=== PATIENT | female | born 1980 | race Caucasian/White ===

== ENCOUNTER 2020-06-01 01:20 | Emergency (ER) | payer SELFPAY ==
[2020-06-01] MEDS ORDERED: Mag-Al Plus 1200 MG/1200 MG/120 MG/30 ML UDCUP ONE (01:57)
[2020-06-01] MEDS ORDERED: Aspirin Chewable 81 MG TAB ONE (01:57)
[2020-06-01 02:26] LABS: #Basophils 0.1 10x3/uL (0.0-0.2); #Eosinphils 0.8 10x3/uL (0.0-0.5); #Neutrophils 7.3 10x3/uL (1.5-8.4); %Basophils 0.8 % (0.0-2.0); %Eosinophils 6.6 % (0.0-6.0); %Lymphocytes 22.4 % (18.0-47.0); %Monocytes 8.2 % (0.0-10.0); %Neutrophils 61.7 % (40.0-75.0); Hemoglobin 11.7 g/dL (12.0-15.5); Mean Corpuscular HGB CONC 32.9 g/dL (32.0-36.0); Mean Corpuscular Hemoglobin 26.3 pg (27.0-33.0); Mean Platelet Volume 9.7 fl (7.4-10.4); Platelet Count 258 10x3/uL (150-450); RBC Distribution Width 14.2 % (11.5-14.5); Red Blood Cell (RBC) Count 4.45 10x6/uL (3.90-5.03); White Blood Cell (WBC) Count 11.8 10x3/uL (3.5-10.5)
[2020-06-01 02:39] LABS: ALT (SGPT) 10 U/L (8-55); AST (SGOT) 16 U/L (5-34); Albumin 4.3 g/dL (3.5-5.0); Alkaline Phosphatase 65 U/L (40-110); Anion Gap 13 mmol/L (10-20); BUN (Urea Nitrogen) 7 mg/dL (7.0-18.7); Bilirubin, Total 0.1 mg/dL (0.2-1.2); Calc. Creatinine Clearance 0 mL/min (70-130); Calcium 9.2 mg/dL (7.8-10.44); Carbon Dioxide 24 mmol/L (22-29); Chloride 105 mmol/L (98-107); Globulin 2.4 g/dL (2.4-3.5); Glucose 92 mg/dL (70-105); Lipase 25 U/L (8-78); Potassium 3.8 mmol/L (3.5-5.1); Protein, Total 6.7 g/dL (6.0-8.3); Sodium 138 mmol/L (136-145)
[2020-06-01] MEDS ORDERED: Ketorolac Tromethamine 30 MG/ML VIAL ONE (03:26)
== END 2020-06-01 06:22 | disposition home or self-care (01) ==
LOC: CSHERS 01:20
DX: R07.89 Other chest pain (principal); K21.9 Gastro-esophageal reflux disease without esophagitis; F17.210 Nicotine dependence, cigarettes, uncomplicated
CPT/HCPCS: 71045; 80053; 83690; 84443; 84484; 85025; 93005; 96374; J1885

== ENCOUNTER 2020-06-29 12:54 | Emergency (ER) | payer SELFPAY ==
[2020-06-29] MEDS ORDERED: Ketorolac Tromethamine 30 MG/ML VIAL ONE (13:57)
[2020-06-29 14:05] LABS: #Basophils 0.1 10x3/uL (0.0-0.2); #Eosinphils 0.7 10x3/uL (0.0-0.5); #Monocytes 0.5 10x3/uL (0.0-1.1); #Neutrophils 3.7 10x3/uL (1.5-8.4); %Basophils 1.2 % (0.0-2.0); %Eosinophils 11.4 % (0.0-6.0); %Neutrophils 58.2 % (40.0-75.0); Hemoglobin 11.7 g/dL (12.0-15.5); Mean Corpuscular HGB CONC 31.7 g/dL (32.0-36.0); Mean Corpuscular Hemoglobin 25.5 pg (27.0-33.0); Mean Corpuscular Volume 80.6 fl (81.6-98.3); Mean Platelet Volume 9.4 fl (7.4-10.4); Platelet Count 242 10x3/uL (150-450); RBC Distribution Width 14.1 % (11.5-14.5); Red Blood Cell (RBC) Count 4.58 10x6/uL (3.90-5.03); White Blood Cell (WBC) Count 6.4 10x3/uL (3.5-10.5)
[2020-06-29 14:14] LABS: ALT (SGPT) 9 U/L (8-55); AST (SGOT) 16 U/L (5-34); Albumin 3.9 g/dL (3.5-5.0); Alkaline Phosphatase 63 U/L (40-110); Anion Gap 13 mmol/L (10-20); BUN (Urea Nitrogen) 9 mg/dL (7.0-18.7); Bilirubin, Total 0.2 mg/dL (0.2-1.2); Calc. Creatinine Clearance 0 mL/min (70-130); Calcium 9.1 mg/dL (7.8-10.44); Carbon Dioxide 24 mmol/L (22-29); Chloride 107 mmol/L (98-107); Globulin 2.5 g/dL (2.4-3.5); Glucose 63 mg/dL (70-105); Potassium 4.4 mmol/L (3.5-5.1); Protein, Total 6.4 g/dL (6.0-8.3); Sodium 140 mmol/L (136-145)
== END 2020-06-29 14:55 | disposition home or self-care (01) ==
LOC: CSHERS 12:54
DX: M94.0 Chondrocostal junction syndrome [Tietze] (principal); K21.9 Gastro-esophageal reflux disease without esophagitis; F17.210 Nicotine dependence, cigarettes, uncomplicated
CPT/HCPCS: 71045; 80053; 84484; 85025; 93005; 96374; J1885

== ENCOUNTER 2021-02-04 14:44 | Emergency (ER) | payer SELFPAY ==
[2021-02-04 15:47] LABS: #Basophils 0.1 10x3/uL (0.0-0.2); #Eosinphils 0.7 10x3/uL (0.0-0.5); #Monocytes 0.4 10x3/uL (0.0-1.1); #Neutrophils 4.5 10x3/uL (1.5-8.4); %Basophils 1.7 % (0.0-2.0); %Eosinophils 9.4 % (0.0-6.0); %Lymphocytes 24.7 % (18.0-47.0); %Monocytes 5.7 % (0.0-10.0); %Neutrophils 58.4 % (40.0-75.0); Hemoglobin 11.2 g/dL (12.0-15.5); Mean Corpuscular HGB CONC 32.1 g/dL (32.0-36.0); Mean Corpuscular Hemoglobin 24.7 pg (27.0-33.0); Mean Platelet Volume 8.8 fl (7.4-10.4); Platelet Count 275 10x3/uL (150-450); RBC Distribution Width 15.1 % (11.5-14.5); Red Blood Cell (RBC) Count 4.53 10x6/uL (3.90-5.03); White Blood Cell (WBC) Count 7.7 10x3/uL (3.5-10.5)
[2021-02-04 15:58] LABS: ALT (SGPT) 8 U/L (8-55); AST (SGOT) 15 U/L (5-34); Albumin 4.1 g/dL (3.5-5.0); Alkaline Phosphatase 57 U/L (40-110); Anion Gap 10 mmol/L (10-20); BUN (Urea Nitrogen) 9 mg/dL (7.0-18.7); Bilirubin, Total 0.1 mg/dL (0.2-1.2); Calc. Creatinine Clearance 0 mL/min (70-130); Calcium 8.9 mg/dL (7.8-10.44); Carbon Dioxide 26 mmol/L (22-29); Chloride 107 mmol/L (98-107); Globulin 2.5 g/dL (2.4-3.5); Glucose 100 mg/dL (70-105); Potassium 4.1 mmol/L (3.5-5.1); Protein, Total 6.6 g/dL (6.0-8.3); Sodium 139 mmol/L (136-145)
== END 2021-02-04 16:46 | disposition home or self-care (01) ==
LOC: CSHERS 14:44
DX: R07.2 Precordial pain (principal); I49.8 Other specified cardiac arrhythmias; K21.9 Gastro-esophageal reflux disease without esophagitis; F17.210 Nicotine dependence, cigarettes, uncomplicated; Z98.61 Coronary angioplasty status; Z79.899 Other long term (current) drug therapy
CPT/HCPCS: 36415; 71045; 80053; 83735; 83880; 84484; 85025; 93005

== ENCOUNTER 2021-09-26 00:04 | Emergency (ER) | payer SELFPAY ==
[2021-09-26] MEDS ORDERED: Ketorolac Tromethamine 30 MG/ML VIAL ONE (00:31)
== END 2021-09-26 00:55 | disposition home or self-care (01) ==
LOC: CSHERS 00:04
DX: M54.50 Low back pain, unspecified (principal); F17.210 Nicotine dependence, cigarettes, uncomplicated; W19.XXXA Unspecified fall, initial encounter
CPT/HCPCS: 72131; J1885

== ENCOUNTER 2021-12-16 13:36 | Inpatient (IN) | payer SELFPAY ==
[2021-12-16] MEDS ORDERED: Naloxone HCl 0.4 mg/ml Vial ONE (13:45)
[2021-12-16] MEDS ORDERED: Ondansetron PF 4 MG/2 ML Vial ONE (14:11)
[2021-12-16 14:18] LABS: Bilirubin Neg (Negative); Blood, Urine 250 (Negative); Glucose, Urine (Dipstick) 50 mg/dL (Negative); Ketone, Urine Negative (Negative); Leukocyte 25 (Negative); Nitrite Positive (Negative); Protein, Urine (Dipstick) 100 mg/dl (Neg-Trace); Urobilinogen Normal mg/dL (Less than 2)
[2021-12-16 14:26] LABS: Amphetamine Detected (NotDetected); Barbiturates Screen Not Detected (NotDetected); Benzodiazepine Screen Detected (NotDetected); Cocaine Metabolite Screen Not Detected (NotDetected); Methadone Not Detected (NotDetected); Methamphetamine Detected (NotDetected); Opiate Screen Not Detected (NotDetected); Oxycodone Screen Not Detected (NotDetected); Phencyclidine (PCP) Not Detected (NotDetected); THC/Cannabinoid Screen Not Detected (NotDetected); Tricyclic Screen Not Detected (NotDetected)
[2021-12-16 14:29] LABS: Hemoglobin 13.4 g/dL (12.0-15.5); Mean Corpuscular HGB CONC 31.5 g/dL (32.0-36.0); Mean Corpuscular Hemoglobin 25.4 pg (27.0-33.0); Mean Corpuscular Volume 80.7 fl (81.6-98.3); Mean Platelet Volume 9.7 fl (7.4-10.4); Platelet Count 302 10x3/uL (150-450); RBC Distribution Width 15.4 % (11.5-14.5); Red Blood Cell (RBC) Count 5.28 10x6/uL (3.90-5.03); White Blood Cell (WBC) Count 51.2 10x3/uL (3.5-10.5)
[2021-12-16 14:52] LABS: Bacteria/HPF 4+ HPF (None Seen); Mucous/LPF 1+ LPF (<2+); RBC/HPF 0-3 HPF (0-3); Squamous Epithelial 0-3 HPF (0-3); Transitional Epithelial 0-3 HPF (None Seen)
[2021-12-16 15:15] LABS: Band 15 % (5-11); Lymphocytes 4 % (21-51); Monocytes 9 % (0-10); Reactive Lymphocytes 1 % (0-10)
[2021-12-16 15:18] LABS: Neutrophil 71 % (42-75); Platelet Morphology Comment Appears Adequate
[2021-12-16] MEDS ORDERED: Cefepime 2 GM VIAL ONE (15:19)
[2021-12-16 15:20] LABS: Large Platelets SLIGHT
[2021-12-16 15:20] LABS: ALT (SGPT) 147 U/L (8-55); AST (SGOT) 299 U/L (5-34); Albumin 4.6 g/dL (3.5-5.0); Alkaline Phosphatase 124 U/L (40-110); Anion Gap 24 mmol/L (10-20); BUN (Urea Nitrogen) 14 mg/dL (7.0-18.7); Bilirubin, Total 0.1 mg/dL (0.2-1.2); Calc. Creatinine Clearance 0 mL/min (70-130); Calcium 9.1 mg/dL (7.8-10.44); Carbon Dioxide 12 mmol/L (22-29); Chloride 110 mmol/L (98-107); Estimated GFR 38; Glucose 75 mg/dL (70-105); Potassium 3.7 mmol/L (3.5-5.1); Protein, Total 7.6 g/dL (6.0-8.3); Sodium 142 mmol/L (136-145)
[2021-12-16 15:21] LABS: Reflex for Review?? YES
[2021-12-16 15:23] LABS: MDiff Complete? YES
[2021-12-16 15:30] LABS: BHCG - Serum Negative (NEGATIVE); Pregs Control Background? CLEAR/WHITE (CLR/WHITE); Pregs Control Bar Appear? YES (CONTROL BAR)
[2021-12-16] MEDS ORDERED: Clindamycin/D5W 600 MG in Premix Bag 1 BAG IVPB SCH (15:45)
[2021-12-16 16:06] LABS: Acetaminophen Less than 10.0 mcg/mL (10.0-30.0); Alcohol Less than 10 mg/dL (Less than 10); Salicylate Less than 8.0 mg/dL (15.0-30.0)
[2021-12-16] MEDS ORDERED: NOREPINEPHRINE 8 MG/250 ML-D5W 250 ML ONE (16:13)
[2021-12-16 17:31] LABS: SARS-CoV-2 NAA Rapid Test Not Detected (NotDetected)
[2021-12-16] MEDS ORDERED: HumaLOG 300 UNITS/3 ML VIAL SC PRN (17:48)
[2021-12-16] MEDS ORDERED: Acetaminophen 650 MG Suppository PR PRN (17:48)
[2021-12-16] MEDS ORDERED: NOREPINEPHRINE 8 MG/250 ML-D5W 250 ML IVPB PRN (17:48)
[2021-12-16] MEDS ORDERED: Ventilator Sedation Protocol 1 EACH FS SCH (18:00)
[2021-12-16] MEDS ORDERED: Fentanyl BOLUS 250 ML IVPB PRN (18:45)
[2021-12-16] MEDS ORDERED: Morphine 2 MG/ML VIAL SLOW IVP PRN (18:45)
[2021-12-16] MEDS ORDERED: fentaNYL Citrate-0.9 % NaCl/PF 100 ML IVPB SCH (18:45)
[2021-12-16] MEDS ORDERED: Propofol 1,000 MG/100 ML VIAL IV PRN (18:45)
[2021-12-16] MEDS ORDERED: Propofol BOLUS 1,000 MG/100 ML VIAL IV PRN (18:45)
[2021-12-16 19:00] LABS: Actual Bicarbonate (HCO3a) 16.7 mEq/L (22-28); Base Excess (BEa) -8.1 mEq/L (-2.0 to +3.0); CO2 Tension 32.2 mmHg (35.0-45.0); Calcium, Ionized (arterial) 1.07 mmol/L (1.12-1.30); Carboxyhemoglobin (COHb) 0.2 gm% (0.0-3.0); O2 Tension (PaO2), arterial 233.2 mmHg (80.0-100.0); Potassium - ABG Lab 4.3 mmol/L (3.70-5.30); Puncture Site RRA; pH, Arterial 7.33 (7.35-7.45)
[2021-12-16] MEDS ORDERED: Dextrose 50% Abboject 50 ML SYRINGE ONE (19:25)
[2021-12-16 19:50] LABS: Lactic Acid 1.5 mmol/L (0.5-2.2)
[2021-12-16 19:52] LABS: INR-International Normal Ratio 1.2; PTT 27.9 sec (22.0-33.0); Prothrombin Time 12.4 sec (9.5-12.1)
[2021-12-16 20:00] LABS: Troponin I 0.228 ng/mL (< 0.028)
[2021-12-16] MEDS ORDERED: metroNIDAZOLE 500 MG TAB PO SCH (21:00)
[2021-12-16] MEDS ORDERED: Famotidine/PF 20 mg/2ml Vial SLOW IVP SCH (21:00)
[2021-12-16] MEDS: Sodium Chloride 0.9% 1,000 ML IV SCH (21:11)
[2021-12-16] MEDS: Lorazepam 2 MG/ML VIAL SLOW IVP PRN (21:29)
[2021-12-16] MEDS: Famotidine/PF 20 mg/2ml Vial SLOW IVP SCH (21:40)
[2021-12-16] MEDS: Heparin 5,000 UNITS/ML VIAL SC SCH (21:40)
[2021-12-16] MEDS: metroNIDAZOLE 500 MG in Premix Bag 1 BAG IVPB SCH (22:31)
[2021-12-17] MEDS ORDERED: FLU VACC QS2022-23(6MOS UP)/PF 60 MCG/0.5 ML SYRINGE IM ONE (01:45)
[2021-12-17] MEDS ORDERED: Dextrose 5% in Water 1,000 ML IV PRN (01:45)
[2021-12-17] MEDS ORDERED: Dextrose 50% Abboject 50 ML SYRINGE IVP PRN (01:45)
[2021-12-17 04:31] LABS: ALV-art Gradient 33.425 mmHg (0-20); Actual Bicarbonate (HCO3a) 16.3 mEq/L (22-28); Base Excess (BEa) -7.7 mEq/L (-2.0 to +3.0); CO2 Tension 28.7 mmHg (35.0-45.0); Carboxyhemoglobin (COHb) 0.3 gm% (0.0-3.0); Critical Notified By: CP.PH; Hemoglobin (Hb) 11.6 g/dL (12.0-16.0); O2 Tension (PaO2), arterial 144.6 mmHg (80.0-100.0); Potassium - ABG Lab 3.7 mmol/L (3.70-5.30); Puncture Site RRA; RapidComm Collect By CP.PH; pH, Arterial 7.37 (7.35-7.45)
[2021-12-17] MEDS: Cefepime 2 GM in Sodium Chloride 0.9% 100 ML IVPB SCH ×2 (04:31→15:51)
[2021-12-17 05:06] LABS: #Eosinphils 0.2 10x3/uL (0.0-0.5); #Neutrophils 16.3 10x3/uL (1.5-8.4); %Basophils 0.2 % (0.0-2.0); %Eosinophils 1.2 % (0.0-6.0); %Lymphocytes 7.7 % (18.0-47.0); %Monocytes 5.4 % (0.0-10.0); %Neutrophils 84.8 % (40.0-75.0); Hemoglobin 11.1 g/dL (12.0-15.5); Mean Corpuscular HGB CONC 33.3 g/dL (32.0-36.0); Mean Corpuscular Hemoglobin 25.1 pg (27.0-33.0); Mean Corpuscular Volume 75.3 fl (81.6-98.3); Mean Platelet Volume 9.4 fl (7.4-10.4); Platelet Count 202 10x3/uL (150-450); RBC Distribution Width 15.5 % (11.5-14.5); Red Blood Cell (RBC) Count 4.42 10x6/uL (3.90-5.03); White Blood Cell (WBC) Count 19.2 10x3/uL (3.5-10.5)
[2021-12-17 05:09] LABS: Thyroid Stimulating Hormone 1.9284 uIU/mL (0.35-4.94)
[2021-12-17 05:11] LABS: CK (CPK) 24803 U/L (29-168)
[2021-12-17 05:21] LABS: ALT (SGPT) 168 U/L (8-55); AST (SGOT) 389 U/L (5-34); Albumin 2.6 g/dL (3.5-5.0); Alkaline Phosphatase 79 U/L (40-110); Anion Gap 12 mmol/L (10-20); BUN (Urea Nitrogen) 17 mg/dL (7.0-18.7); Bilirubin, Total 0.2 mg/dL (0.2-1.2); Calc. Creatinine Clearance 54 mL/min (70-130); Calcium 7.3 mg/dL (7.8-10.44); Carbon Dioxide 16 mmol/L (22-29); Chloride 117 mmol/L (98-107); Estimated GFR 63; Globulin 1.8 g/dL (2.4-3.5); Glucose 108 mg/dL (70-105); Potassium 3.8 mmol/L (3.5-5.1); Protein, Total 4.4 g/dL (6.0-8.3); Sodium 141 mmol/L (136-145)
[2021-12-17] MEDS: metroNIDAZOLE 500 MG in Premix Bag 1 BAG IVPB SCH ×3 (05:53→22:05)
[2021-12-17] MEDS: Sodium Chloride 0.9% 1,000 ML IV SCH ×2 (06:46)
[2021-12-17] MEDS ORDERED: Sodium Chloride 0.9% 1,000 ML IV SCH (07:27)
[2021-12-17] MEDS ORDERED: Lactated Ringer's 500 ML IV SCH (07:30)
[2021-12-17] MEDS: Dextrose 5 %-0.45 % NaCl 1,000 ML IV SCH ×3 (08:23→21:35)
[2021-12-17] MEDS: Heparin 5,000 UNITS/ML VIAL SC SCH ×3 (08:39→20:11)
[2021-12-17] MEDS: Famotidine/PF 20 mg/2ml Vial SLOW IVP SCH ×2 (08:39→20:11)
[2021-12-17 08:54] LABS: Magnesium 1.4 mg/dL (1.6-2.6); Phosphorus 2.5 mg/dL (2.3-4.7)
[2021-12-17] MEDS ORDERED: Enoxaparin Sodium 40 MG/0.4 ML SYRINGE SC SCH (09:00)
[2021-12-17] MEDS: Lorazepam 2 MG/ML VIAL SLOW IVP PRN ×4 (10:51→22:05)
[2021-12-17] MEDS: Morphine 4 MG/ML VIAL SLOW IVP PRN ×4 (10:51→22:05)
[2021-12-17] MEDS ORDERED: Magnesium 2 GM/50 ML(in water) 2 GM in Premix Bag 1 BAG IVPB SCH (11:00)
[2021-12-17 13:24] LABS: HBCM Index 0.08 S/CO (0-0.79); Hep A IgM AB Non-Reactive (NonReactive); Hep A IgM S/CO 0.18 S/CO (0-0.79); Hep C IgG Ab Non-Reactive (NonReactive); Hep C Index 0.09 S/CO (0-0.79); Hepatitis B Core IgM Abs Non-Reactive (NonReactive)
[2021-12-17 14:31] LABS: HBSAg Index 0.35 S/CO (0-0.99); Hep B Surf Ag Non-Reactive S/CO (NonReactive)
[2021-12-17] MEDS: Acetaminophen 325 MG TAB PO PRN (15:51)
[2021-12-17] MEDS ORDERED: Vancomycin HCl 750 MG in Sodium Chloride 0.9% 250 ML 250 ML IVPB SCH (16:00)
[2021-12-17] MEDS ORDERED: Vancomycin HCl 1 GM in Sodium Chloride 0.9% 250 ML 250 ML IVPB SCH (16:00)
[2021-12-18] MEDS: Lorazepam 2 MG/ML VIAL SLOW IVP PRN ×3 (00:22→10:36)
[2021-12-18] MEDS: Morphine 4 MG/ML VIAL SLOW IVP PRN (00:22)
[2021-12-18] MEDS: Cefepime 2 GM in Sodium Chloride 0.9% 100 ML IVPB SCH ×2 (03:43→16:12)
[2021-12-18] MEDS: Dextrose 5 %-0.45 % NaCl 1,000 ML IV SCH ×3 (04:11→18:37)
[2021-12-18 04:45] LABS: Hemoglobin 9.3 g/dL (12.0-15.5); Mean Corpuscular HGB CONC 33.2 g/dL (32.0-36.0); Mean Corpuscular Hemoglobin 24.7 pg (27.0-33.0); Mean Corpuscular Volume 74.3 fl (81.6-98.3); Mean Platelet Volume 10.1 fl (7.4-10.4); Platelet Count 174 10x3/uL (150-450); RBC Distribution Width 15.8 % (11.5-14.5); Red Blood Cell (RBC) Count 3.77 10x6/uL (3.90-5.03); White Blood Cell (WBC) Count 11.7 10x3/uL (3.5-10.5)
[2021-12-18 05:03] LABS: ALT (SGPT) 198 U/L (8-55); AST (SGOT) 433 U/L (5-34); Albumin 2.4 g/dL (3.5-5.0); Alkaline Phosphatase 70 U/L (40-110); Anion Gap 8 mmol/L (10-20); BUN (Urea Nitrogen) 8 mg/dL (7.0-18.7); Bilirubin, Total 0.2 mg/dL (0.2-1.2); Calc. Creatinine Clearance 73 mL/min (70-130); Calcium 7.3 mg/dL (7.8-10.44); Carbon Dioxide 18 mmol/L (22-29); Chloride 115 mmol/L (98-107); Estimated GFR 91; Globulin 1.5 g/dL (2.4-3.5); Glucose 153 mg/dL (70-105); Potassium 3.3 mmol/L (3.5-5.1); Protein, Total 3.9 g/dL (6.0-8.3); Sodium 138 mmol/L (136-145)
[2021-12-18] MEDS: metroNIDAZOLE 500 MG in Premix Bag 1 BAG IVPB SCH ×3 (05:17→21:08)
[2021-12-18 05:35] LABS: CK (CPK) 19364 U/L (29-168)
[2021-12-18] MEDS: Heparin 5,000 UNITS/ML VIAL SC SCH ×3 (08:39→21:20)
[2021-12-18] MEDS: Famotidine/PF 20 mg/2ml Vial SLOW IVP SCH ×2 (08:39→21:08)
[2021-12-18] MEDS ORDERED: Potassium Bicarbonate/Cit Ac 20 MEQ TAB PO SCH (09:00)
[2021-12-18] MEDS ORDERED: Dexamethasone 20 MG/5 ML VIAL SLOW IVP SCH (15:30)
[2021-12-19] MEDS: Dextrose 5 %-0.45 % NaCl 1,000 ML IV SCH ×4 (00:33→21:03)
[2021-12-19] MEDS: Cefepime 2 GM in Sodium Chloride 0.9% 100 ML IVPB SCH ×2 (02:52→16:32)
[2021-12-19 03:41] LABS: Hemoglobin 9.1 g/dL (12.0-15.5); Mean Corpuscular HGB CONC 33.7 g/dL (32.0-36.0); Mean Corpuscular Hemoglobin 25.1 pg (27.0-33.0); Mean Corpuscular Volume 74.6 fl (81.6-98.3); Mean Platelet Volume 9.5 fl (7.4-10.4); Platelet Count 162 10x3/uL (150-450); RBC Distribution Width 15.3 % (11.5-14.5); Red Blood Cell (RBC) Count 3.62 10x6/uL (3.90-5.03); White Blood Cell (WBC) Count 7.8 10x3/uL (3.5-10.5)
[2021-12-19 03:53] LABS: ALT (SGPT) 244 U/L (8-55); AST (SGOT) 517 U/L (5-34); Albumin 2.7 g/dL (3.5-5.0); Alkaline Phosphatase 70 U/L (40-110); Anion Gap 10 mmol/L (10-20); BUN (Urea Nitrogen) 5 mg/dL (7.0-18.7); Bilirubin, Total 0.2 mg/dL (0.2-1.2); Calc. Creatinine Clearance 89 mL/min (70-130); Calcium 7.8 mg/dL (7.8-10.44); Carbon Dioxide 20 mmol/L (22-29); Chloride 113 mmol/L (98-107); Estimated GFR 109; Glucose 189 mg/dL (70-105); Potassium 3.9 mmol/L (3.5-5.1); Protein, Total 4.7 g/dL (6.0-8.3); Sodium 139 mmol/L (136-145)
[2021-12-19 04:41] LABS: CK (CPK) 17698 U/L (29-168)
[2021-12-19] MEDS: metroNIDAZOLE 500 MG in Premix Bag 1 BAG IVPB SCH ×3 (05:11→21:04)
[2021-12-19] MEDS: Heparin 5,000 UNITS/ML VIAL SC SCH ×3 (08:09→21:03)
[2021-12-19] MEDS: Famotidine/PF 20 mg/2ml Vial SLOW IVP SCH ×2 (08:09→21:03)
[2021-12-19] MEDS: Acetaminophen 325 MG TAB PO PRN ×2 (16:38→21:05)
[2021-12-19] MEDS: Ondansetron PF 4 MG/2 ML Vial IVP PRN (21:03)
[2021-12-20] MEDS: Dextrose 5 %-0.45 % NaCl 1,000 ML IV SCH ×4 (03:27→20:33)
[2021-12-20] MEDS: Cefepime 2 GM in Sodium Chloride 0.9% 100 ML IVPB SCH (03:27)
[2021-12-20] MEDS: metroNIDAZOLE 500 MG in Premix Bag 1 BAG IVPB SCH (05:17)
[2021-12-20] MEDS: Famotidine/PF 20 mg/2ml Vial SLOW IVP SCH (07:39)
[2021-12-20] MEDS: Heparin 5,000 UNITS/ML VIAL SC SCH ×3 (07:40→20:33)
[2021-12-20 08:21] LABS: Anion Gap 10 mmol/L (10-20); BUN (Urea Nitrogen) 5 mg/dL (7.0-18.7); Calc. Creatinine Clearance 98 mL/min (70-130); Calcium 7.5 mg/dL (7.8-10.44); Carbon Dioxide 22 mmol/L (22-29); Chloride 113 mmol/L (98-107); Estimated GFR 112; Glucose 135 mg/dL (70-105); Potassium 3.6 mmol/L (3.5-5.1); Sodium 141 mmol/L (136-145)
[2021-12-20] MEDS: Famotidine 20 MG TAB PO SCH ×2 (08:28→20:33)
[2021-12-20 08:33] LABS: CK (CPK) 7237 U/L (29-168)
[2021-12-20 10:58] LABS: ALT (SGPT) 210 U/L (8-55); AST (SGOT) 295 U/L (5-34); Albumin 2.6 g/dL (3.5-5.0); Alkaline Phosphatase 71 U/L (40-110); Bilirubin, Direct 0.1 mg/dL (0.1-0.3); Bilirubin, Total 0.2 mg/dL (0.2-1.2); Protein, Total 4.4 g/dL (6.0-8.3)
[2021-12-21] MEDS: Dextrose 5 %-0.45 % NaCl 1,000 ML IV SCH ×3 (03:49→20:30)
[2021-12-21 04:35] LABS: #Basophils 0.1 10x3/uL (0.0-0.2); #Eosinphils 1.2 10x3/uL (0.0-0.5); #Monocytes 0.9 10x3/uL (0.0-1.1); #Neutrophils 5.1 10x3/uL (1.5-8.4); %Basophils 0.7 % (0.0-2.0); %Eosinophils 13.7 % (0.0-6.0); %Lymphocytes 15.5 % (18.0-47.0); %Monocytes 10.7 % (0.0-10.0); Hemoglobin 9.5 g/dL (12.0-15.5); Mean Corpuscular HGB CONC 33.5 g/dL (32.0-36.0); Mean Corpuscular Hemoglobin 24.9 pg (27.0-33.0); Mean Corpuscular Volume 74.5 fl (81.6-98.3); Mean Platelet Volume 10.4 fl (7.4-10.4); Platelet Count 194 10x3/uL (150-450); RBC Distribution Width 15.9 % (11.5-14.5); Red Blood Cell (RBC) Count 3.81 10x6/uL (3.90-5.03); White Blood Cell (WBC) Count 8.5 10x3/uL (3.5-10.5)
[2021-12-21 04:44] LABS: ALT (SGPT) 195 U/L (8-55); AST (SGOT) 200 U/L (5-34); Albumin 2.7 g/dL (3.5-5.0); Alkaline Phosphatase 78 U/L (40-110); Anion Gap 10 mmol/L (10-20); BUN (Urea Nitrogen) 4 mg/dL (7.0-18.7); Bilirubin, Total 0.3 mg/dL (0.2-1.2); CK (CPK) 3309 U/L (29-168); Calc. Creatinine Clearance 95 mL/min (70-130); Calcium 7.8 mg/dL (7.8-10.44); Carbon Dioxide 22 mmol/L (22-29); Chloride 112 mmol/L (98-107); Estimated GFR 111; Globulin 2.1 g/dL (2.4-3.5); Glucose 119 mg/dL (70-105); Potassium 3.2 mmol/L (3.5-5.1); Protein, Total 4.8 g/dL (6.0-8.3); Sodium 141 mmol/L (136-145)
[2021-12-21] MEDS: Heparin 5,000 UNITS/ML VIAL SC SCH ×3 (08:55→20:39)
[2021-12-21] MEDS: Famotidine 20 MG TAB PO SCH ×2 (08:56→20:39)
[2021-12-21 09:55] VITALS: BMI 24.5
[2021-12-21] MEDS ORDERED: Iopamidol 300 61% 100 ML VIAL FS ONE (13:29)
[2021-12-21] MEDS ORDERED: Vancomycin HCl 1 GM in Sodium Chloride 0.9% 250 ML 250 ML IVPB SCH (14:30)
[2021-12-21] MEDS ORDERED: Meropenem 1 GM in Sodium Chloride 0.9% 100 ML IVPB SCH (14:30)
[2021-12-21] MEDS: Ondansetron PF 4 MG/2 ML Vial IVP PRN (20:30)
[2021-12-21] MEDS ORDERED: Vancomycin 1 GM in Premix Bag 1 BAG IVPB SCH (21:00)
[2021-12-21] MEDS: Meropenem 1 GM in Sodium Chloride 0.9% 100 ML IVPB SCH (21:54)
[2021-12-22] MEDS: Vancomycin HCl 750 MG in Sodium Chloride 0.9% 250 ML 250 ML IVPB SCH ×2 (02:12→13:41)
[2021-12-22] MEDS: Ondansetron PF 4 MG/2 ML Vial IVP PRN ×3 (04:07→22:31)
[2021-12-22 05:30] LABS: ALT (SGPT) 157 U/L (8-55); AST (SGOT) 133 U/L (5-34); Albumin 2.7 g/dL (3.5-5.0); Alkaline Phosphatase 71 U/L (40-110); Anion Gap 10 mmol/L (10-20); BUN (Urea Nitrogen) Less than 4 mg/dL (7.0-18.7); Bilirubin, Total 0.3 mg/dL (0.2-1.2); CK (CPK) 1914 U/L (29-168); Calc. Creatinine Clearance 104 mL/min (70-130); Calcium 7.8 mg/dL (7.8-10.44); Carbon Dioxide 23 mmol/L (22-29); Chloride 112 mmol/L (98-107); Estimated GFR 114; Glucose 100 mg/dL (70-105); Potassium 3.1 mmol/L (3.5-5.1); Protein, Total 4.7 g/dL (6.0-8.3); Sodium 142 mmol/L (136-145)
[2021-12-22] MEDS: Meropenem 1 GM in Sodium Chloride 0.9% 100 ML IVPB SCH ×3 (05:33→21:53)
[2021-12-22] MEDS: Dextrose 5 %-0.45 % NaCl 1,000 ML IV SCH ×5 (06:14→21:57)
[2021-12-22] MEDS: Famotidine 20 MG TAB PO SCH ×2 (08:37→21:52)
[2021-12-22] MEDS: Heparin 5,000 UNITS/ML VIAL SC SCH ×3 (08:37→21:52)
[2021-12-23] MEDS ORDERED: Promethazine HCl 12.5 MG in Sodium Chloride 0.9% 50 ML IVPB SCH (01:15)
[2021-12-23 02:00] LABS: Vancomycin, Trough 8.4 ug/mL
[2021-12-23] MEDS: Acetaminophen 325 MG TAB PO PRN ×2 (02:35→17:50)
[2021-12-23] MEDS ORDERED: Vancomycin HCl 1 GM in Sodium Chloride 0.9% 250 ML 250 ML IVPB SCH (03:00)
[2021-12-23] MEDS: Dextrose 5 %-0.45 % NaCl 1,000 ML IV SCH ×3 (05:42→18:55)
[2021-12-23] MEDS: Meropenem 1 GM in Sodium Chloride 0.9% 100 ML IVPB SCH ×3 (05:43→20:11)
[2021-12-23 05:47] LABS: ALT (SGPT) 147 U/L (8-55); AST (SGOT) 123 U/L (5-34); Albumin 2.8 g/dL (3.5-5.0); Alkaline Phosphatase 70 U/L (40-110); Anion Gap 9 mmol/L (10-20); BUN (Urea Nitrogen) 5 mg/dL (7.0-18.7); Bilirubin, Total 0.3 mg/dL (0.2-1.2); CK (CPK) 1361 U/L (29-168); Calc. Creatinine Clearance 81 mL/min (70-130); Carbon Dioxide 25 mmol/L (22-29); Chloride 112 mmol/L (98-107); Estimated GFR 109; Globulin 1.9 g/dL (2.4-3.5); Glucose 135 mg/dL (70-105); Potassium 3.4 mmol/L (3.5-5.1); Protein, Total 4.7 g/dL (6.0-8.3); Sodium 143 mmol/L (136-145)
[2021-12-23] MEDS: Ondansetron PF 4 MG/2 ML Vial IVP PRN (10:01)
[2021-12-23] MEDS: Heparin 5,000 UNITS/ML VIAL SC SCH ×3 (10:01→20:10)
[2021-12-23] MEDS: Famotidine 20 MG TAB PO SCH ×2 (10:01→20:11)
[2021-12-23] MEDS: Morphine 4 MG/ML VIAL SLOW IVP PRN ×2 (12:54→20:07)
[2021-12-24] MEDS: Morphine 4 MG/ML VIAL SLOW IVP PRN ×4 (00:41→15:19)
[2021-12-24 05:59] LABS: #Basophils 0.1 10x3/uL (0.0-0.2); #Eosinphils 0.8 10x3/uL (0.0-0.5); #Neutrophils 6.3 10x3/uL (1.5-8.4); %Basophils 0.6 % (0.0-2.0); %Eosinophils 8.4 % (0.0-6.0); %Lymphocytes 16.4 % (18.0-47.0); %Monocytes 10.2 % (0.0-10.0); %Neutrophils 63.7 % (40.0-75.0); Hemoglobin 8.5 g/dL (12.0-15.5); Mean Corpuscular HGB CONC 32.6 g/dL (32.0-36.0); Mean Corpuscular Hemoglobin 25.1 pg (27.0-33.0); Mean Platelet Volume 10.2 fl (7.4-10.4); Platelet Count 209 10x3/uL (150-450); RBC Distribution Width 17.1 % (11.5-14.5); Red Blood Cell (RBC) Count 3.39 10x6/uL (3.90-5.03); White Blood Cell (WBC) Count 9.9 10x3/uL (3.5-10.5)
[2021-12-24] MEDS: Dextrose 5 %-0.45 % NaCl 1,000 ML IV SCH ×4 (06:16→21:24)
[2021-12-24 06:17] LABS: ALT (SGPT) 117 U/L (8-55); AST (SGOT) 73 U/L (5-34); Albumin 2.8 g/dL (3.5-5.0); Alkaline Phosphatase 68 U/L (40-110); Anion Gap 10 mmol/L (10-20); BUN (Urea Nitrogen) 5 mg/dL (7.0-18.7); Bilirubin, Total 0.3 mg/dL (0.2-1.2); Calc. Creatinine Clearance 85 mL/min (70-130); Calcium 7.9 mg/dL (7.8-10.44); Carbon Dioxide 26 mmol/L (22-29); Chloride 112 mmol/L (98-107); Estimated GFR 113; Globulin 1.8 g/dL (2.4-3.5); Glucose 120 mg/dL (70-105); Protein, Total 4.6 g/dL (6.0-8.3); Sodium 145 mmol/L (136-145)
[2021-12-24] MEDS: Meropenem 1 GM in Sodium Chloride 0.9% 100 ML IVPB SCH (06:49)
[2021-12-24 07:38] LABS: CRP (Inflammatory) Less than 0.50 mg/dL (= or < 0.5)
[2021-12-24] MEDS: Famotidine 20 MG TAB PO SCH ×2 (09:50→21:22)
[2021-12-24] MEDS: Heparin 5,000 UNITS/ML VIAL SC SCH ×3 (09:52→21:21)
[2021-12-24] MEDS ORDERED: Potassium Chloride 20 MEQ TAB PO SCH ×2 (11:45→17:00)
[2021-12-24] MEDS ORDERED: Morphine 2 MG/ML VIAL SLOW IVP SCH (15:45)
[2021-12-24] MEDS: traMADol HCl 50 MG TAB PO PRN (17:46)
[2021-12-24] MEDS: Acetaminophen 325 MG TAB PO PRN (21:22)
[2021-12-25] MEDS: traMADol HCl 50 MG TAB PO PRN ×4 (00:32→18:40)
[2021-12-25] MEDS: Acetaminophen 325 MG TAB PO PRN ×3 (04:01→20:16)
[2021-12-25] MEDS: Dextrose 5 %-0.45 % NaCl 1,000 ML IV SCH ×3 (04:02→17:37)
[2021-12-25 05:57] LABS: #Basophils 0.1 10x3/uL (0.0-0.2); #Eosinphils 0.7 10x3/uL (0.0-0.5); #Neutrophils 6.6 10x3/uL (1.5-8.4); %Basophils 0.5 % (0.0-2.0); %Eosinophils 6.9 % (0.0-6.0); %Lymphocytes 17.2 % (18.0-47.0); %Monocytes 10.1 % (0.0-10.0); %Neutrophils 64.8 % (40.0-75.0); Hemoglobin 8.5 g/dL (12.0-15.5); Mean Corpuscular HGB CONC 33.1 g/dL (32.0-36.0); Mean Corpuscular Hemoglobin 25.2 pg (27.0-33.0); Mean Corpuscular Volume 76.3 fl (81.6-98.3); Platelet Count 221 10x3/uL (150-450); RBC Distribution Width 18.2 % (11.5-14.5); Red Blood Cell (RBC) Count 3.37 10x6/uL (3.90-5.03); White Blood Cell (WBC) Count 10.1 10x3/uL (3.5-10.5)
[2021-12-25 06:07] LABS: Anion Gap 12 mmol/L (10-20); BUN (Urea Nitrogen) 4 mg/dL (7.0-18.7); Calc. Creatinine Clearance 95 mL/min (70-130); Calcium 7.9 mg/dL (7.8-10.44); Carbon Dioxide 26 mmol/L (22-29); Chloride 110 mmol/L (98-107); Estimated GFR 116; Glucose 96 mg/dL (70-105); Magnesium 1.4 mg/dL (1.6-2.6); Potassium 3.8 mmol/L (3.5-5.1); Sodium 144 mmol/L (136-145)
[2021-12-25] MEDS: Famotidine 20 MG TAB PO SCH ×2 (08:15→20:16)
[2021-12-25] MEDS: Heparin 5,000 UNITS/ML VIAL SC SCH ×3 (08:16→20:15)
[2021-12-25] MEDS: Magnesium 2 GM/50 ML(in water) 2 GM in Premix Bag 1 BAG IVPB SCH ×2 (12:07→14:30)
[2021-12-26] MEDS: traMADol HCl 50 MG TAB PO PRN ×3 (00:16→12:20)
[2021-12-26] MEDS: Acetaminophen 325 MG TAB PO PRN ×2 (02:35→09:40)
[2021-12-26 03:54] LABS: #Basophils 0.1 10x3/uL (0.0-0.2); #Eosinphils 0.5 10x3/uL (0.0-0.5); #Monocytes 1.1 10x3/uL (0.0-1.1); #Neutrophils 12.7 10x3/uL (1.5-8.4); %Basophils 0.3 % (0.0-2.0); %Eosinophils 3.2 % (0.0-6.0); %Lymphocytes 6.7 % (18.0-47.0); %Neutrophils 82.3 % (40.0-75.0); Hemoglobin 8.7 g/dL (12.0-15.5); Mean Corpuscular HGB CONC 33.6 g/dL (32.0-36.0); Mean Corpuscular Hemoglobin 25.7 pg (27.0-33.0); Mean Corpuscular Volume 76.4 fl (81.6-98.3); Mean Platelet Volume 10.5 fl (7.4-10.4); Platelet Count 207 10x3/uL (150-450); RBC Distribution Width 18.5 % (11.5-14.5); Red Blood Cell (RBC) Count 3.39 10x6/uL (3.90-5.03); White Blood Cell (WBC) Count 15.4 10x3/uL (3.5-10.5)
[2021-12-26 04:14] LABS: ALT (SGPT) 74 U/L (8-55); AST (SGOT) 36 U/L (5-34); Albumin 2.9 g/dL (3.5-5.0); Alkaline Phosphatase 72 U/L (40-110); Anion Gap 12 mmol/L (10-20); BUN (Urea Nitrogen) 5 mg/dL (7.0-18.7); Bilirubin, Total 0.3 mg/dL (0.2-1.2); Calc. Creatinine Clearance 85 mL/min (70-130); Carbon Dioxide 24 mmol/L (22-29); Chloride 108 mmol/L (98-107); Estimated GFR 114; Globulin 1.8 g/dL (2.4-3.5); Glucose 109 mg/dL (70-105); Magnesium 1.7 mg/dL (1.6-2.6); Phosphorus 3.3 mg/dL (2.3-4.7); Potassium 3.4 mmol/L (3.5-5.1); Protein, Total 4.7 g/dL (6.0-8.3); Sodium 141 mmol/L (136-145)
[2021-12-26] MEDS: Heparin 5,000 UNITS/ML VIAL SC SCH ×2 (09:31→14:33)
[2021-12-26] MEDS: Famotidine 20 MG TAB PO SCH (09:31)
[2021-12-26 12:15] VITALS: TEMP 98.2
[2021-12-26 15:55] VITALS: BP 139/63
== END 2021-12-26 16:10 | disposition home or self-care (01) | DRG 917 ==
LOC: CSHERS 13:36 → CSHIMCU 18:25 → CSHTELE 12-21 18:57
PROVIDERS: ADMIT Internal Medicine; ATTEND Family Medicine
PROC: 5A1945Z Respiratory Ventilation, 24-96 Consecutive Hours (ICD-10-PCS; principal; 2021-12-16)
PROC: 0BH17EZ Insertion of Endotracheal Airway into Trachea, Via Natural or Artificial Opening (ICD-10-PCS; 2021-12-16)
PROC: 3E043XZ Introduction of Vasopressor into Central Vein, Percutaneous Approach (ICD-10-PCS; 2021-12-16)
PROC: 02H633Z Insertion of Infusion Device into Right Atrium, Percutaneous Approach (ICD-10-PCS; 2021-12-16)
DX: T40.412A Poisoning by fentanyl or fentanyl analogs, intentional self-harm, initial encounter (principal); A41.9 Sepsis, unspecified organism; J96.01 Acute respiratory failure with hypoxia; R65.21 Severe sepsis with septic shock; G92.8 Other toxic encephalopathy; K72.00 Acute and subacute hepatic failure without coma; I21.A1 Myocardial infarction type 2; J69.0 Pneumonitis due to inhalation of food and vomit; R57.1 Hypovolemic shock; E87.20 Acidosis, unspecified; N17.9 Acute kidney failure, unspecified; M62.82 Rhabdomyolysis; F33.9 Major depressive disorder, recurrent, unspecified; N39.0 Urinary tract infection, site not specified; Z71.51 Drug abuse counseling and surveillance of drug abuser; F15.129 Other stimulant abuse with intoxication, unspecified; F13.129 Sedative, hypnotic or anxiolytic abuse with intoxication, unspecified; F17.210 Nicotine dependence, cigarettes, uncomplicated; E87.8 Other disorders of electrolyte and fluid balance, not elsewhere classified; E83.42 Hypomagnesemia; F41.9 Anxiety disorder, unspecified; E87.6 Hypokalemia; R60.1 Generalized edema; D64.9 Anemia, unspecified
CPT/HCPCS: 31500; 36415; 36416; 36556; 36600; 51702; 70450; 71045; 74176; 80048; 80053; 80074; 80076; 80202; 80306; 80307; 81003; 81015; 82550; 82553; 82805; 83605; 83735; 83930; 84100; 84145; 84443; 84484; 84703; 85025; 85027; 85060; 85610; 85652; 85730; 86140; 87040; 87086; 87811; 93005; 93010; 93306; 94002; 94003; 94760; 96361; 96365; 96366; 96367; 96375; J0692; J1100; J1644; J2060; J2185; J2270; J2310; J2405; J2550; J2704; J3370; J3475; J3490; J7042; J7050; J7120; J7999; Q9967; S0028; U0002

== ENCOUNTER 2022-01-23 11:30 | Emergency (ER) | payer SELFPAY ==
[2022-01-23 12:26] LABS: #Eosinphils 0.2 10x3/uL (0.0-0.5); #Monocytes 0.4 10x3/uL (0.0-1.1); #Neutrophils 2.8 10x3/uL (1.5-8.4); %Basophils 0.4 % (0.0-2.0); %Eosinophils 4.9 % (0.0-6.0); %Lymphocytes 23.9 % (18.0-47.0); %Monocytes 7.8 % (0.0-10.0); %Neutrophils 62.8 % (40.0-75.0); Hemoglobin 11.1 g/dL (12.0-15.5); Mean Corpuscular HGB CONC 33.1 g/dL (32.0-36.0); Mean Corpuscular Volume 75.5 fl (81.6-98.3); Mean Platelet Volume 8.9 fl (7.4-10.4); Platelet Count 216 10x3/uL (150-450); RBC Distribution Width 16.8 % (11.5-14.5); Red Blood Cell (RBC) Count 4.44 10x6/uL (3.90-5.03); White Blood Cell (WBC) Count 4.5 10x3/uL (3.5-10.5)
[2022-01-23 12:30] LABS: Bilirubin Neg (Negative); Blood, Urine 150 (Negative); Clarity Sl. Cloudy (Clear); Glucose, Urine (Dipstick) Normal (Negative); Ketone, Urine Negative (Negative); Leukocyte 100 (Negative); Nitrite Positive (Negative); Protein, Urine (Dipstick) 15 mg/dl (Neg-Trace); Specific Gravity, Urine 1.025 (1.005-1.030); Urobilinogen Normal mg/dL (Less than 2)
[2022-01-23 12:36] LABS: ALT (SGPT) 21 U/L (8-55); AST (SGOT) 31 U/L (5-34); Albumin 4.1 g/dL (3.5-5.0); Alkaline Phosphatase 62 U/L (40-110); Anion Gap 14 mmol/L (10-20); BUN (Urea Nitrogen) 14 mg/dL (7.0-18.7); Bilirubin, Total 0.1 mg/dL (0.2-1.2); Calc. Creatinine Clearance 0 mL/min (70-130); Calcium 8.9 mg/dL (7.8-10.44); Carbon Dioxide 23 mmol/L (22-29); Chloride 106 mmol/L (98-107); Estimated GFR 103; Globulin 2.8 g/dL (2.4-3.5); Glucose 94 mg/dL (70-105); Potassium 3.7 mmol/L (3.5-5.1); Protein, Total 6.9 g/dL (6.0-8.3); Sodium 139 mmol/L (136-145)
[2022-01-23 12:40] LABS: Bacteria/HPF 3+ HPF (None Seen); RBC/HPF 0-3 HPF (0-3)
[2022-01-23 12:43] LABS: Pregu Control Background? CLEAR/WHITE (CLR/WHITE); Pregu Control Bar Appear? YES (CONTROL BAR); Specific Gravity 1.025 (1.002-1.036)
[2022-01-23 12:47] LABS: Pregnancy Test - Urine (BHCG) Negative (Negative)
[2022-01-23] MEDS ORDERED: traMADol HCl 50 MG TAB ONE (14:25)
[2022-01-23] MEDS ORDERED: Sulfameth/Trimethoprim DS 800-160mg TAB ONE (14:25)
== END 2022-01-23 15:43 | disposition home or self-care (01) ==
LOC: CSHERS 11:30
DX: N30.01 Acute cystitis with hematuria (principal); G89.29 Other chronic pain; M79.604 Pain in right leg; R53.1 Weakness; F17.210 Nicotine dependence, cigarettes, uncomplicated
CPT/HCPCS: 36415; 80053; 81003; 81015; 81025; 85025; 96360; 96361